=== PATIENT | female | born 1955 | race Caucasian/White ===

== ENCOUNTER → 2020-09-27 | Outpatient (CLI) | payer OTHER, SELFPAY ==
[~2020-09-27] VITALS: Ht 160 cm; Wt 77.1 kg
[~2020-09-27] MED LIST: ALBUTEROL2.5 MG/3 M INH; LEVOTHYROXINE88 MCG PO; RABEPRAZOLE SOD20 MG PO; TURMERIC PO; VITAMIN B-121000 MCG PO; VITAMIN D PO
[2020-09-27 11:48] LABS: HEMOGLOBIN 6.5 gm/dl (12.3-15.3)
== END ==
LOC: OPSV 10:48
PROVIDERS: Internal Medicine Hematology & Oncology
DX: C34.90 Malignant neoplasm of unspecified part of unspecified bronchus or lung (principal)
CPT/HCPCS: 36430; 36591; 85014; 85018; 85049; 86850; 86900; 86901; 86920; J1642; J1940; J7050; P9016; P9037

== ENCOUNTER → 2020-09-28 | Outpatient (CLI) | payer OTHER, SELFPAY ==
[~2020-09-28] VITALS: Ht 160 cm; Wt 77.1 kg
== END ==
LOC: OPSV 07:13
DX: C34.90 Malignant neoplasm of unspecified part of unspecified bronchus or lung (principal)
CPT/HCPCS: 36430; 96374; 96375; J1642; P9016

== ENCOUNTER → 2020-11-08 | Outpatient (CLI) | payer OTHER ==
[~2020-11-08] VITALS: Ht 160 cm; Wt 77.1 kg
[2020-11-08 11:13] LABS: HEMOGLOBIN 7.2 gm/dl (12.3-15.3)
== END ==
LOC: OPSV 10:35
PROVIDERS: Internal Medicine Hematology & Oncology
DX: D64.9 Anemia, unspecified (principal)
CPT/HCPCS: 36415; 36430; 85014; 85018; 86850; 86900; 86901; 86920; J1642; J7050; P9016

== ENCOUNTER → 2020-12-27 | Outpatient (CLI) | payer OTHER | LOC: CT 07:36 | DX: C34.2 Malignant neoplasm of middle lobe, bronchus or lung (principal); C34.80 Malignant neoplasm of overlapping sites of unspecified bronchus and lung; C78.1 Secondary malignant neoplasm of mediastinum; R63.4 Abnormal weight loss; R59.0 Localized enlarged lymph nodes; N28.1 Cyst of kidney, acquired; Z98.890 Other specified postprocedural states | CPT/HCPCS: 71260; Q9967 ==

== ENCOUNTER → 2021-02-10 | Outpatient (CLI) | payer OTHER | LOC: EMI 10:54 | DX: C34.2 Malignant neoplasm of middle lobe, bronchus or lung (principal); C34.80 Malignant neoplasm of overlapping sites of unspecified bronchus and lung; C78.1 Secondary malignant neoplasm of mediastinum; R63.4 Abnormal weight loss | CPT/HCPCS: 70553; A9577 ==